=== PATIENT | female | born 1970 | race Caucasian/White ===

== ENCOUNTER 2024-01-11 11:51 | Outpatient (RCR) | payer SELFPAY | END 2024-01-25 23:59 | disposition home or self-care (01) | LOC: SOT 11:51 | PROVIDERS: Visit Provider Orthopaedic Surgery Hand Surgery | DX: S62.304D Unspecified fracture of fourth metacarpal bone, right hand, subsequent encounter for fracture with routine healing (principal); X58.XXXD Exposure to other specified factors, subsequent encounter | CPT/HCPCS: 97110; 97165; 97530 ==